=== PATIENT | female | born 1955 | race Caucasian/White ===

== ENCOUNTER 2017-08-31 11:43 | Emergency (ER) | payer BC ==
[2017-08-31 11:51] VITALS: BP 118/68
--- NOTE | 2017-08-31 11:59 | ED ---
Bite Injury/Animal - HPI Summary HPI Summary: 61-year-old female presents with tick bite on Sunday. She states that on Sunday she must have gotten the tick and on Sunday she scratched the area and the tick feel off. She denies any fevers or spreading redness. She denies any neck stiffness. She is not allergic to doxycycline. She has past medical condition of blood pressure. She denies any joint pain. - History of Current Complaint Chief Complaint: Octavio Stated Complaint: TICK BITE Time Seen by Provider: 08/31/17 11:53 Pain Intensity: 0 - Allergies/Home Medications Allergies/Adverse Reactions: Allergies Allergy/AdvReac Type Severity Reaction Status Date / Time No Known Allergies Allergy Verified 08/31/17 11:51 PMH/Surg Hx/FS Hx/Imm Hx Endocrine/Hematology History: Reports: Hx Thyroid Disease - hypo Respiratory History: Denies: Hx Asthma - Cancer History Cancer Type, Location and Year: breast ca Hx Chemotherapy: Yes - ONCE Hx Radiation Therapy: Yes - TWICE - Surgical History Surgery Procedure, Year, and Place: bilateral lobectomy x2. bilateral axillary dissection x2 Infectious Disease History: No Infectious Disease History: Denies: Hx Clostridium Difficile, Hx Hepatitis, Hx Human Immunodeficiency Virus (HIV), Hx of Known/Suspected MRSA, Hx Shingles, Hx Tuberculosis, Hx Known/ Suspected VRE, Hx Known/Suspected VRSA, History Other Infectious Disease, Traveled Outside the in Last 30 Days - Family History Known Family History: Positive: Hypertension - Social History Alcohol Use: Weekly Alcohol Amount: 2-3 glasses per week Substance Use Type: Reports: None Hx Tobacco Use: No Smoking Status (MU): Never Smoked Tobacco Have You Smoked in the Last Year: No Review of Systems Negative: Fever Negative: Chest Pain Negative: Shortness Of Breath Positive: Other - tick bite neck All Other Systems Reviewed And Are Negative: Yes Physical Exam Triage Information Reviewed: Yes Vital Signs On Initial Exam: Initial Vitals Temp Pulse Resp BP Pulse Ox 98.1 F 83 18 118/68 98 08/31/17 11:48 08/31/17 11:48 08/31/17 11:48 08/31/17 11:48 08/31/17 11:48 Vital Signs Reviewed: Yes Appearance: Positive: Well-Appearing Skin: Positive: Warm, Dry, Other - old tick bite on neck Head/Face: Positive: Normal Head/Face Inspection Eyes: Positive: Normal, Conjunctiva Clear Respiratory/Lung Sounds: Positive: Clear to Auscultation, Breath Sounds Present Cardiovascular: Positive: Normal, RRR Musculoskeletal: Positive: Normal Neurological: Positive: Normal Psychiatric: Positive: Normal Diagnostics - Vital Signs Vital Signs Temp Pulse Resp BP Pulse Ox 08/31/17 11:48 98.1 F 83 18 118/68 98 - Laboratory Lab Statement: Any lab studies that have been ordered have been reviewed, and results considered in the medical decision making process. Bite Injury Course/Dx - Course Course Of Treatment: 61-year-old female presents with tick bite on Sunday. She states that on Sunday she must have gotten the tick and on Sunday she scratched the area and the tick feel off. She denies any fevers or spreading redness. She denies any neck stiffness. She is not allergic to doxycycline. She has past medical condition of blood pressure. She denies any joint pain. on exam has area where tick was present. no signs of cellulitis. We'll treat with prophylactic dose of doxycycline as was his given within 72 hours of tick removal. Patient understands agrees with plan. - Diagnoses Differential Diagnosis/HQI/PQRI: Positive: Superficial Infection, Other - tick, lyme Provider Diagnosis: Tick bite Discharge - Sign-Out/Discharge Documenting (check all that apply): Discharge/Admit/Transfer - Discharge Plan Condition: Good Disposition: HOME Prescriptions: DOXYcycline CAP(*) [DOXYcycline 100MG CAP(*)] 200 mg PO DAILY #2 cap Patient Education Materials: Tick Bite (ED) Referrals: Rylie Carson NP [Primary Care Provider] - Additional Instructions: Take two antibiotic tablets at once, you may throw it up Return to ED if develop any rash or signs of infection - Billing Disposition and Condition Condition: GOOD Disposition: HOME
== END 2017-08-31 12:05 | disposition home or self-care (01) ==
LOC: UCEAST 11:43
DX: S10.96XA Insect bite of unspecified part of neck, initial encounter (principal); W57.XXXA Bitten or stung by nonvenomous insect and other nonvenomous arthropods, initial encounter; Y93.9 Activity, unspecified; Y92.9 Unspecified place or not applicable; E03.9 Hypothyroidism, unspecified; Z85.3 Personal history of malignant neoplasm of breast
CPT/HCPCS: 99212; G0463

== ENCOUNTER 2019-03-28 07:15 | Observation (INO) | payer MEDICARE ==
[~2019-03-28 07:15] MED LIST: Acetaminophen TAB* 325 MG PO ONE; Buffered Lidocaine 1% SYRIN* 1 ML/SYRINGE INTRADERM ONE; Famotidine IV* 10 MG/ML 2 ML (20 mg) IV ONE; Gabapentin CAP(*) 300 MG PO ONE; Lactated Ringers 1000 ML Bag* 1,000 ML IV SCH
[2019-03-28] MEDS ORDERED: Heparin VIAL(*) 5000 UNITS/ML VIAL (FIVE THOUSAND) ONE (09:29)
[2019-03-28] MEDS ORDERED: Famotidine IV* 10 MG/ML 2 ML (20 mg) ONE (09:30)
[2019-03-28] MEDS ORDERED: ceFAZolin 2 GM in NS PREMIX(*) 2 GM/100 ML BAG IVPB ONE (09:30)
[2019-03-28] MEDS ORDERED: Acetaminophen TAB* 325 MG ONE (09:30)
[2019-03-28] MEDS ORDERED: Gabapentin CAP(*) 300 MG ONE (09:30)
[2019-03-28] MEDS ORDERED: Midazolam* 1 MG/ML 2 ML VIAL (2 MG) ONE (10:33)
[2019-03-28] MEDS ORDERED: fentaNYL* 50 MCG/ML 2 ML VIAL (100 MCG VIAL) ONE ×4 (10:33→15:38)
[2019-03-28] MEDS ORDERED: Bupivacaine 0.25% SDV PF* 10 ML VIAL INJ ONE ×2 (10:58→13:01)
[2019-03-28] MEDS ORDERED: Dexamethasone IV* 4 MG/ML 1 ML (4 MG) ONE (11:26)
[2019-03-28] MEDS ORDERED: Propofol* 10 MG/ML 20 ML BTL ONE (11:26)
[2019-03-28] MEDS ORDERED: Lidocaine 2% PF * 5 ML VIAL ONE (11:26)
[2019-03-28] MEDS ORDERED: Ondansetron INJ* 2 MG/ML VIAL ONE (11:26)
[2019-03-28] MEDS ORDERED: Ketorolac INJ* 30 MG/ML 1 ML VIAL ONE (14:11)
[2019-03-28] MEDS ORDERED: DiMENhydriNATE IV* 50 MG/ML VIAL IV PUSH PRN (14:14)
[2019-03-28] MEDS ORDERED: Scopolamine 1.5 mg* PATCH TRANSDERM PRN (14:14)
[2019-03-28] MEDS ORDERED: Naloxone* 0.4 MG/ML 1 ML VIAL IV PRN (14:14)
[2019-03-28] MEDS ORDERED: Ondansetron INJ* 2 MG/ML VIAL IV PRN ×2 (14:14→14:34)
[2019-03-28] MEDS ORDERED: oxyCODONE TAB* 5 MG TAB PO PRN (14:14)
[2019-03-28] MEDS ORDERED: Acetaminophen IV 1GM/100ML * 100 ML ONE (14:15)
[2019-03-28] MEDS ORDERED: HYDROmorphone INJ* 0.5 MG/0.5 ML SYRINGE IV SLOW PU PRN (14:34)
[2019-03-28] MEDS ORDERED: Ibuprofen TAB* 600 MG PO PRN (14:34)
[2019-03-28] MEDS ORDERED: oxyCODONE/Acetamin 5/325 MG* TAB PO PRN (14:34)
[2019-03-28] MEDS: fentaNYL* 50 MCG/ML 2 ML VIAL (100 MCG VIAL) IV PRN ×2 (15:39→15:54)
[2019-03-28] MEDS: Lactated Ringers 1000 ML Bag* 1,000 ML IV SCH (17:22)
[2019-03-28] MEDS: Acetaminophen TAB* 325 MG PO PRN (19:35)
[2019-03-28] MEDS: Heparin VIAL(*) 5000 UNITS/ML VIAL (FIVE THOUSAND) SUBCUT SCH (21:35)
--- NOTE | 2019-03-28 21:37 | OP ---
CC: [facility]; Rylie Carson NP; [facility] OPERATIVE REPORT: DATE OF OPERATION: 03/28/19 DATE OF : 51 SURGEON: Era Patiño MD COIN MACHINE OPERATOR: iBjal Villegas NP and PAULA Galvan, student PRE-OP DIAGNOSIS: Left breast cancer. POST-OP DIAGNOSIS: Left breast cancer. OPERATIVE PROCEDURE: Bilateral mastectomy and left axillary dissection. INDICATIONS: Ms. King is a 63-year-old woman recently diagnosed with left breast cancer. Her history is significant for having had bilateral breast cancers in the distant past status post radiation on both sides and axillary dissection at least on the left. Plans were therefore made for surgical intervention. She opted for bilateral mastectomy and was aware that an attempt will be made at completion axillary dissection with the understanding that possibly not many lymph nodes would be recovered. DESCRIPTION OF PROCEDURE: She was brought to the operating room, placed on the OR table in the supine position and given general anesthesia. The chest wall and left axilla were prepped and draped in the usual sterile fashion. Attention was turned first to the right side. An incision was made in the superior aspect of the breast and subcutaneous tissue was divided with electrocautery to create flaps medially to the sternum, superiorly to the clavicle, and laterally to the latissimus dorsi muscle. An inferior incision was made creating an ellipse around the nipple areolar complex and scar from the previous surgery. Subcutaneous tissues was again divided with electrocautery medially to the sternum, inferiorly to the rectus muscle, and laterally to the latissimus dorsi muscle. The breast was then elevated off the chest wall using electrocautery. Once it was off, it was marked in the usual fashion and handed off as a specimen. Hemostasis was assured with electrocautery. Once this appeared adequate, closure was accomplished. This was done with 2-0 Vicryl to reapproximate subcutaneous layer and the skin was closed with 4-0 Vicryl in a subcuticular fashion. Prior to closing, a KARI drain was placed under the flaps of the mastectomy site emerging from a stab wound in the anterior axillary line. This was secured to the chest wall with 3-0 Prolene. Steri-Strips and a dry fluffy dressing were applied at the end of the case. Attention was then turned to the left side here. An incision was made in the superior breast encompassing a scar from the previous surgery. Subcutaneous tissue was then divided with electrocautery medially to the sternum, superiorly to the clavicle and laterally to the latissimus dorsi muscle. An inferior incision was made encompassing the nipple areolar complex and completing the ellipse of skin around the nipple areolar complex. Subcutaneous tissues was then divided with electrocautery medially to the sternum, inferiorly to the rectus muscle, and laterally to the latissimus dorsi muscle. The breast was then elevated off the chest wall using electrocautery. Hemostasis was achieved with electrocautery as the breast was excised. At the lateral superior extent in the axilla, a search was made for axillary lymph nodes. There appeared to be some relatively high axillary lymph nodes accessible. So these were dissected free from the axilla using primarily sharp and blunt dissection. The axillary fat pad was swept posteriorly from the pectoralis muscle, inferiorly from the axillary vein and anteriorly from the latissimus dorsi muscle. Clips were used to control small blood and lymphatic vessels that were encountered and there was occasional use of ligature. Once the axillary contents were removed, the breast together with the axillary contents was marked in the usual fashion and handed off as a specimen. The wound was inspected for hemostasis which was assured with electrocautery and then 2 KARI drains were placed, 1 emerging from the anterior axillary line, 1 emerging from the mid axillary line , and closure was accomplished with 2-0 Vicryl in the subcutaneous layer and the skin was closed with 4-0 Vicryl in a subcuticular fashion. Steri- Strips and a dry fluffy dressing were applied to the this site as well and the chest was wrapped with an Yinka wrap. All sponge and instrument counts were correct. The patient tolerated the procedure well and was transferred to recovery in a stable condition. [id number]/[facility] #: [id number] MIGUEL
[2019-03-29] MEDS: Acetaminophen TAB* 325 MG PO PRN (03:14)
[2019-03-29] MEDS: Lactated Ringers 1000 ML Bag* 1,000 ML IV SCH (05:58)
[2019-03-29] MEDS: Heparin VIAL(*) 5000 UNITS/ML VIAL (FIVE THOUSAND) SUBCUT SCH (05:58)
[2019-03-29 07:36] VITALS: BP 139/81
[2019-03-29] MEDS ORDERED: Levothyroxine TAB* 88 MCG TAB PO SCH (08:00)
--- NOTE | 2019-03-29 08:01 | PN ---
Progress Note - Progress Note Date of Service: 03/29/19 Note: Surgery Ms. King reports she is doing well. She denies pain. Vital Signs 03/28/19 03/28/19 03/28/19 09:40 15:03 15:04 Temperature 97.0 F Pulse Rate 65 92 95 Respiratory 16 Rate Blood Pressure 112/70 134/79 (mmHg) O2 Sat by Pulse 98 99 99 Oximetry 03/28/19 03/28/19 03/28/19 15:05 15:10 15:15 Temperature 99.9 F Pulse Rate 93 90 91 Respiratory 13 14 Rate Blood Pressure 128/79 130/79 129/79 (mmHg) O2 Sat by Pulse 99 99 99 Oximetry 03/28/19 03/28/19 03/28/19 15:20 15:25 15:30 Temperature Pulse Rate 89 93 103 Respiratory 16 17 21 Rate Blood Pressure 125/80 119/74 107/67 (mmHg) O2 Sat by Pulse 99 99 99 Oximetry 03/28/19 03/28/19 03/28/19 15:39 15:45 15:54 Temperature Pulse Rate 85 Respiratory 16 8 16 Rate Blood Pressure 107/67 (mmHg) O2 Sat by Pulse 96 Oximetry 03/28/19 03/28/19 03/28/19 16:00 16:15 16:30 Temperature Pulse Rate 78 78 87 Respiratory 18 13 13 Rate Blood Pressure 115/68 122/76 117/66 (mmHg) O2 Sat by Pulse 99 99 94 Oximetry 03/28/19 03/28/19 03/28/19 16:45 17:00 17:35 Temperature 97.6 F Pulse Rate 86 80 Respiratory 16 14 14 Rate Blood Pressure 115/70 127/68 (mmHg) O2 Sat by Pulse 99 98 Oximetry 03/28/19 03/28/19 03/28/19 17:39 18:05 19:05 Temperature 97.5 F 97.9 F 97.5 F Pulse Rate 80 82 85 Respiratory 14 15 18 Rate Blood Pressure 127/68 118/61 125/75 (mmHg) O2 Sat by Pulse 98 98 99 Oximetry 03/28/19 03/28/19 03/28/19 19:21 21:00 23:13 Temperature 97.9 F 97.9 F Pulse Rate 89 78 Respiratory 18 16 17 Rate Blood Pressure 126/69 112/56 (mmHg) O2 Sat by Pulse 100 98 Oximetry 03/29/19 03/29/19 03/29/19 03:01 03:05 07:27 Temperature 98.5 F Pulse Rate 83 Respiratory 16 16 Rate Blood Pressure 114/61 (mmHg) O2 Sat by Pulse 98 100 100 Oximetry 03/29/19 07:34 Temperature 98.6 F Pulse Rate 73 Respiratory 16 Rate Blood Pressure 139/81 (mmHg) O2 Sat by Pulse 98 Oximetry Right mastectomy site: clean, dry, no signs of infection. Flaps viable. Left mastectomy site: clean, dry, no signs of infection. Flaps viable. KARI, right: serous drainage JPs, left: serosanguinous drainage. Intake & Output 03/28/19 03/29/19 03/29/19 22:59 06:59 14:59 Intake Total 1875 1380 Output Total 431 700 Balance 1444 680 Intake: IV Fluids 1400 980 LR 1400 980 Oral 475 400 Output: KARI #1 42 30 KARI #2 40 30 KARI #3 49 40 Urine 300 600 Other: Estimated Void Small Date of Last Bowel 03/28/19 Movement # Voids 1 A/P: POD#1 s/p bilateral mastectomies, left axillary dissection. Doing well. Can go home and f/u as outpt. [facility]
[2019-03-29] MEDS ORDERED: Benzocaine/Menthol LOZ* 1 LOZENGE PO PRN (08:02)
[2019-03-31] MEDS ORDERED: Scopolamine PATCH Remove* 1 NOTE MISC PATCH OFF ONE (14:14)
== END 2019-03-29 10:05 | disposition home or self-care (01) ==
LOC: OR 07:15 → SSU 14:34
PROVIDERS: ADMIT Surgery; ATTEND Surgery
DX: C50.912 Malignant neoplasm of unspecified site of left female breast (principal); Z92.21 Personal history of antineoplastic chemotherapy
CPT/HCPCS: 96372; 96374; A9270-GY; G0378; J0690; J1100; J1644; J1885; J2250; J2405; J2704; J3010; J3490

== ENCOUNTER 2019-04-05 12:14 | Emergency (ER) | payer MEDICARE ==
[2019-04-05 12:56] VITALS: BP 116/56
--- NOTE | 2019-04-05 13:24 | UC ---
Skin Complaint HPI - HPI Summary HPI Summary: 63-year-old female comes in with a chief complaint of temperature of 100.8 and redness of a right-sided mastectomy site. Patient had a bilateral mastectomy on February 25, 2019. Yesterday started to notice some erythema at the surgical wound site. Today the erythema has extended. Patient states she feels slightly ill. She still has a draining on the right side is no drainage on the left side. Continuing to have serosanguineous drainage. She spoke with the surgeon on-call Dr. Sam who recommended evaluation. - History of Current Complaint Chief Complaint: UCWounds Time Seen by Provider: 04/05/19 13:13 Stated Complaint: infection, fever Pain Intensity: 3 - Allergy/Home Medications Allergies/Adverse Reactions: Allergies Allergy/AdvReac Type Severity Reaction Status Date / Time No Known Allergies Allergy Verified 04/05/19 12:56 PMH/Surg Hx/FS Hx/Imm Hx Previously Healthy: Yes Endocrine History: Hypothyroidism - Surgical History Surgical History: Yes Surgery Procedure, Year, and Place: bilateral lobectomy x2. bilateral axillary dissection x2. bilat mastectomy 02/25/19 - Family History Known Family History: Positive: Hypertension - Social History Alcohol Use: Weekly Alcohol Amount: 3 glasses of wine Substance Use Type: None Smoking Status (MU): Never Smoked Tobacco Have You Smoked in the Last Year: No - Immunization History Most Recent Influenza Vaccination: 2016 Most Recent Pneumonia Vaccination: NEVER HAVE RECIEVED Review of Systems All Other Systems Reviewed And Are Negative: Yes Constitutional: Positive: Fever, Other - SEE HPI Skin: Positive: Other - SEE HPI Eyes: Positive: Negative ENT: Positive: Negative Respiratory: Positive: Negative Cardiovascular: Positive: Negative Gastrointestinal: Positive: Negative Motor: Positive: Negative Neurovascular: Positive: Negative Musculoskeletal: Positive: Negative Neurological: Positive: Negative Psychological: Positive: Negative Is Patient Immunocompromised?: No Physical Exam Triage Information Reviewed: Yes Appearance: Well-Appearing, No Pain Distress, Well-Nourished Vital Signs: Initial Vital Signs Temp 99.3 F 04/05/19 12:47 Pulse 107 04/05/19 12:47 Resp 16 04/05/19 12:47 BP 116/56 04/05/19 12:47 Pulse Ox 100 04/05/19 12:47 Vital Signs Reviewed: Yes Eye Exam: Normal Eyes: Positive: Conjunctiva Clear Neck: Positive: Supple Respiratory: Positive: No respiratory distress Musculoskeletal: Positive: Strength Intact, ROM Intact Neurological: Positive: Alert Psychological: Positive: Age Appropriate Behavior Skin: Positive: Other - The right-sided mastectomy site has erythema along the incision approximately 3 cm x 5 cm. No drainage on exam. Drain is in place with serosanguineous drainage. Left-sided mastectomy does have some erythema just along the incision site without any drainage. Course/Dx - Course Course Of Treatment: I discussed the case with Dr. Sam the surgeon consulting nurse. She recommended treatment with Keflex and follow-up with surgery on Sunday, April 07, 2019. She also recommended that if the patient got worse she would need further evaluation emergency Department. - Diagnoses Provider Diagnosis: Cellulitis, wound, post-operative Discharge ED - Sign-Out/Discharge Documenting (check all that apply): Patient Departure All imaging exams completed and their final reports reviewed: No Studies - Discharge Plan Condition: Stable Disposition: HOME Prescriptions: Cephalexin CAP* [Keflex CAP*] 500 mg PO QID #40 cap Patient Education Materials: Cellulitis (ED) Referrals: Rylie Carson NP [Primary Care Provider] - Margarita Sam MD [Medical Doctor] - Era Patiño MD [Medical Doctor] - Additional Instructions: FOLLOW UP WITH SURGERY ON 04/07/19 SCHEDULED. GET REEVALUATED SOONER IF NOT IMPROVED OR GO TO THE EMERGENCY DEPARTMENT IF WORSE; SPREAD OF INFECTION, YOU FEEL ILL OR ANY QUESTIONS OR CONCERNS. - Billing Disposition and Condition Condition: STABLE Disposition: Home
== END 2019-04-05 13:42 | disposition home or self-care (01) ==
LOC: UCEAST 12:14
DX: L76.82 Other postprocedural complications of skin and subcutaneous tissue (principal); N61.0 Mastitis without abscess; Y83.8 Other surgical procedures as the cause of abnormal reaction of the patient, or of later complication, without mention of misadventure at the time of the procedure
CPT/HCPCS: 99212; G0463

== ENCOUNTER 2019-05-17 12:08 | Emergency (ER) | payer MEDICARE ==
--- OUTSIDE RECORDS SUMMARY | 2019-05-17 12:16 | XMS REPORT | Continuity of Care Document ---
:1955 External Reference #:[id number] Author Name Era Patiño MD (transmitted by agent of provider Davis Camacho) Address [address] [facility] [address] [place] [address] Care Team Providers Name Role Phone Rylie Carson NP - Family Care Team Information Spring Fitter [phone] Seda Mckeon MD - Internal Care Team Information Spring Fitter [phone] Medicine Problems Active Problems Provider Date Personal history of primary malignant neoplasm Rylie Carson, N.PAnna Onset: of breast Social History Type Date Description Comments Sex Unknown ETOH Use Currently consumes 3 glasses of wine alcohol weekly Tobacco Use Start: Unknown Patient has never smoked Smoking Status Reviewed: 05/15/19 Patient has never smoked Exercise Exercises regularly Cycles or walks daily Type/Frequency Allergies, Adverse Reactions, Alerts Description No Known Drug Allergies Medications Active Medications SIG Qnty Indications Ordering Date Provider Bacitracin (External) apply to affected 56.8gm S20.469A Meagan Yusuf, areas twice a day M.D. 500Unit/GM Ointment x 10 days Levothyroxine Sodium 1 by mouth every 90tabs Rylie Carson, 11/01/2018 day N.P. 88mcg Tablets Anastrozole Take 1 Tablet By Unknown 1mg Tablets Mouth Every Day History Medications Cephalexin Four Times Daily 40caps Unknown 04/05/2019 - Unknown 500mg Capsules Amoxicillin/Clavulana one tablet by 20tabs Rylie Carson, 03/07/2019 - te Potassium mouth twice daily N.P. 03/17/2019 875-125mg for 10 days Tablets Immunizations CPT Code Status Date Vaccine Reaction Lot # [id number] Given 01/10/2017 Influenza Virus Vaccine, No immediate [id number] Quadrivalent, Split, reaction...jh Preservative Free [id number] Given 01/05/2016 Tdap - [id number] Tetanus/Diptheria/Acellular Pertussis Vital Signs Date Vital Result Comment 05/15/2019 4:19pm Heart Rate 68 /min Respiratory Rate 16 /min Body Temperature 98.5 F 04/23/2019 11:28am Heart Rate 72 /min Respiratory Rate 16 /min Body Temperature 98.7 F Results Test Acquired Date Facility Test Result H/L Range Note Surgical 02/18/2019 [facility] Surgical SEE RESULT 1, [address] [place] [address] [phone] PDFReport [id number] <SEE NOTE> Laboratory 01/28/2019 [facility] TSH (Thyroid 0.85 Normal 0.34 -5.[address] Stim Horm) mcIU/[place] [address] [phone] Lipid Profile 01/28/2019 [facility] Triglycerides 66 mg/dL 4 (Trig/Chol/HD [address]) [place], [place] [id number] [phone] Cholesterol 219 mg/dL 5 HDL Cholesterol 87.5 mg/dL 6 LDL Cholesterol 118 mg/dL 7 Comp Metabolic 01/28/2019 [facility] Sodium 140 mmol/L Normal 135-[address] [place] [address] [phone] Potassium 4.5 mmol/L Normal 3.5-5.0 Chloride 106 mmol/L Normal 101-111 Co2 Carbon Dioxide 28 mmol/L Normal 22-32 Anion Gap 6 mmol/L Normal 2-11 Glucose 103 mg/dL High 70-100 Blood Urea Nitrogen 10 mg/dL Normal 6-24 Creatinine 0.79 mg/dL Normal 0.51-0.95 BUN/Creatinine Ratio 12.7 Normal 8-20 Calcium 9.1 mg/dL Normal 8.6-10.3 Total Protein 6.3 g/dL Low 6.4-8.9 Albumin 4.3 g/dL Normal 3.2-5.2 Globulin 2.0 g/dL Normal 2-4 Albumin/Globulin Ratio 2.2 Normal 1-3 Total Bilirubin 0.50 mg/dL Normal 0.2-1.0 Alkaline Phosphatase 43 U/L Normal 34-104 Alt 16 U/L Normal 7-52 Ast 22 U/L Normal 13-39 Egfr Non- 73.0 >60 Egfr 88.4 >60 8 1 [id number] 2 SEE RESULT BELOW Name: CELESTINE KING : [address]: Rylie Carson NP Acct: [id number] Unit: [id number] AGE: 63 Location: [facility] Re02/18/19 SEX: F Status: REG REF SPEC: [id number] PHILOMENA: 02/18/[address] [facility] [address]: Kareem Fairchild MD REQ: [id number] RECD: 02/18/19 STATUS: NEGRO SABA DR: Rylie Carson IMAGING AIDE _ ORDERED: LEVEL 4, IMMUNO-FIRST, IMMUNO-ADDL/6, IMMUNO-QUANT/3 COMMENTS: [id number] FINAL DIAGNOSIS Breast, left, 12:00, 4 cm from nipple, core biopsy: -- Invasive ductal adenocarcinoma of breast, papillary type, with: Size: 3 mm. Tumor extent and distribution: Involves all sampled cores. Estimated Parth grade: Estimated tubule formation: 3. Estimated nuclear grade: 2. Estimated mitotic count: 1. Combined [place] histologic grade: 2/3. (6/9 points). Lymphovascular invasion: Not identified. Ductal Carcinoma in situ (DCIS): Not identified. ER, IA, and Her2/Christy by immunohistochemistry with appropriate controls: ER: Strongly positive, nearly 100%. IA: Negative, less than 1%. Her2/Christy: Negative (0+). Microcalcifications: Not identified. Other findings: None. Predicted pTNM histopathologic stage: at least pT1a. COMMENT: Immunohistochemical stains, with appropriately reacting controls, were performed and show lesional cells to be positive for pankeratin and CK7, and negative for vimentin, CD10, p63, CD45, and S100, supporting the diagnosis. Dr. Nettles reviewed this case in intradepartmental CONTINUED ON NEXT PAGE DEPARTMENT OF PATHOLOGY, [facility] [employer] [place] [address] Simon Nettles M.D. Director [facility] # [id number] consultation and agrees with the diagnosis. PRE-OPERATIVE DIAGNOSIS Left breast mass at 12:00, 4 cm from nipple, 0.6 x 0.4 x 0.6 cm cystic structure GROSS DESCRIPTION The specimen is received in formalin labeled, Left Breast Core Biopsies, and consists of a 0.7 x 0.6 x 0.2 cm aggregate of yellow irregular to cylindrical fibrofatty soft tissue fragments and red-brown blood clot. Entirely submitted, one cassette. Signed by and Reported on: Ellen Rodriguez MD 02/20/19 1629 END OF REPORT DEPARTMENT OF PATHOLOGY, [facility] [employer] [place], [place] [address] Simon Nettles M.D. Director [facility] # [id number] 3 FASTING 10 HOUR 4 Desirable: <150 Borderline High: 150-199 High: 200-499 Very High: >500 5 Desirable: <200 Borderline High: 200-239 High: >239 6 Low: <40 Desirable: 40-60 High: >60 7 Desirable: <100 Near Optimal: 100-129 Borderline High: 130-159 High: 160-189 Very High: >189 8 Because ethnic data is not always readily available, this report includes an eGFR for both -Americans and non- Americans. The National Kidney Disease Education Program (NKDEP) does not endorse the use of the MDRD equation for patients that are not between the ages of 18 and 70, are , have extremes of body size, muscle mass, or nutritional status, or are non- or non-. According to the National Kidney Foundation, irrespective of diagnosis, the stage of the disease is based on the level of kidney function: Stage Description GFR(mL/min/1.73 m(2)) 1 Kidney damage with normal or decreased GFR 90 2 Kidney damage with mild decrease in GFR 60-89 3 Moderate decrease in GFR 30-59 4 Severe decrease in GFR 15-29 5 Kidney failure <15 (or dialysis) Procedures Date Code Description Status 03/28/2019 49753 Mastectomy Mod Radical Not Including Pectoralis Major Completed Muscle 03/28/2019 79544 Mastectomy Mod Radical Not Including Pectoralis Major Completed Muscle 02/03/2019 92093 EKG Tracing & Interpretation Completed 04/14/2016 86640482 Colonoscopy Completed 01/13/2016 96465077 Mammogram Completed Medical Devices Description No Information Available Encounters Type Date Location Provider Dx Diagnosis Office Visit 03/26/2019 [facility] Meagan Yusuf, S20.469A Insect bite 12:10p Medicine - [facility] M.DAnna (nonvenomous) of unsp back wall of thorax, init Office Visit 02/27/2019 [facility] C50.912 Malignant neoplasm 3:[facility]p [facility] Pati[facility] MD of unspecified site of left female breast Assessments Date Code Description Provider 04/23/2019 C50.911 Malignant neoplasm of unspecified site Era Patiño MD of right female breast 04/14/2019 C50.911 Malignant neoplasm of unspecified site Tyrell López MD , FACS of right female breast 04/09/2019 Z85.3 Personal history of malignant neoplasm Era Patiño MD of breast 04/09/2019 L76.34 Postprocedural seroma of skin and Era Patiño MD subcutaneous tissue following other procedure 04/02/2019 C50.912 Malignant neoplasm of unspecified site Era Patiño MD of left female breast 03/28/2019 C50.912 Malignant neoplasm of unspecified site Bijal Villegas NP of left female breast 03/28/2019 C50.912 Malignant neoplasm of unspecified site Era Patiño MD of left female breast 03/26/2019 S20.469A Insect bite (nonvenomous) of Meagan Yusuf M.D. unspecified back wall of thorax, initial encounter 03/26/2019 C50.912 Malignant neoplasm of unspecified site Era Patiño MD of left female breast 03/06/2019 C50.912 Malignant neoplasm of unspecified site Era Patiño MD of left female breast 03/06/2019 Z85.3 Personal history of malignant neoplasm Era Patiño MD of breast 02/27/2019 C50.912 Malignant neoplasm of unspecified site Era Patiño MD of left female breast 02/03/2019 Z00.00 Encounter for general adult medical Cristina Freeman MD examination without abnormal findings 02/03/2019 Z00.00 Encounter for general adult medical Rylie Carson, N.PAnna examination without abnormal findings 02/03/2019 Z12.31 Encounter for screening mammogram for Rylie Trammelln, N.P. malignant neoplasm of breast 02/03/2019 E78.00 Pure hypercholesterolemia, unspecified Rylie Varn, N.P. 02/03/2019 E03.9 Hypothyroidism, unspecified Rylie Varn, N.P. 02/03/2019 N95.8 Other specified menopausal and Rylie Varn, N.P. perimenopausal disorders Plan of Treatment Future Appointment(s):02/09/2020 9:20 am - Rylie Carson, N.P. at [facility] - Era Patiño MDC50.911 Malignant neoplasm of unspecified site of right female breastFollow up:As needed Functional Status Description No Information Available Mental Status Description No Information Available Referrals Description No Information Available
--- OUTSIDE RECORDS SUMMARY | 2019-05-17 12:16 | XMS REPORT | Continuity of Care Document ---
:1955 External Reference #:[id number] Author Name Era Patiño MD (transmitted by agent of provider Davis Camacho) Address [address] [place] [address] Care Team Providers Name Role Phone Rylie Carson NP - Family Care Team Information Process Improvement Manager [phone] Seda Mckeon MD - Internal Care Team Information Process Improvement Manager Medicine Problems Active Problems Provider Date Personal history of primary malignant neoplasm Rylie Carson, N.P. Onset: of breast Social History Type Date Description Comments Sex Unknown ETOH Use Currently consumes 3 glasses of wine alcohol weekly Tobacco Use Start: Unknown Patient has never smoked Smoking Status Reviewed: 04/09/19 Patient has never smoked Exercise Exercises regularly Cycles or walks daily Type/Frequency Allergies, Adverse Reactions, Alerts Description No Known Drug Allergies Medications Active Medications SIG Qnty Indications Ordering Date Provider Cephalexin Four Times Daily 40caps Unknown 04/05/2019 500mg Capsules Bacitracin (External) apply to affected 56.8gm S20.469A Meagan Yusuf, areas twice a day M.D. 500Unit/GM Ointment x 10 days Levothyroxine Sodium 1 by mouth every 90tabs Rylie Carson, 11/01/2018 day N.P. 88mcg Tablets History Medications Amoxicillin/Clavulanate one tablet by 20tabs Rylie Carson, 03/07/2019 - Potassium mouth twice N.P. 03/17/2019 875-125mg Tablets daily for 10 days Immunizations CPT Code Status Date Vaccine Reaction Lot # [id number] Given 01/10/2017 Influenza Virus Vaccine, No immediate [id number] Quadrivalent, Split, reaction... Preservative Free 27698 Given 01/05/2016 Tdap - [id number] Tetanus/Diptheria/Acellular Pertussis Vital Signs Date Vital Result Comment 04/09/2019 10:10am Heart Rate 60 /min Respiratory Rate 16 /min Body Temperature 98.5 F 04/02/2019 9:24am Heart Rate 72 /min BP Systolic 115 mmHg BP Diastolic 66 mmHg Respiratory Rate 16 /min Body Temperature 97.8 F Results Test Acquired Date Facility Test Result H/L Range Note Surgical 02/18/2019 [facility] Surgical SEE RESULT 1, [address] [place] [address] [phone] PDFReport [id number] <SEE NOTE> Laboratory 01/28/2019 [facility] TSH (Thyroid 0.85 Normal 0.34 -5.[address] Stim Horm) mcIU/[place] [address] [phone] Lipid Profile 01/28/2019 [facility] Triglycerides 66 mg/dL 4 (Trig/Chol/HD [place] L) [place] [address] [phone] Cholesterol 219 mg/dL 5 HDL Cholesterol 87.5 mg/dL 6 LDL Cholesterol 118 mg/dL 7 Comp Metabolic 01/28/2019 [facility] Sodium 140 mmol/L Normal 135-[address] [place] [address] [phone] Potassium 4.5 mmol/L Normal 3.5-5.0 Chloride 106 [...] 73.0 >60 Egfr 88.4 >60 8 1 [id number] 2 SEE RESULT BELOW Name: CELESTINE KING : [address]: Rylie Carson NP Acct: [id number] Unit: [id number] AGE: 63 Location: [facility] Re02/18/19 SEX: F Status: REG REF SPEC: [id number] PHILOMENA: 02/18/19-1035 [facility] DR: Kareem Fairchild MD REQ: [id number] RECD: 02/18/19 STATUS: NEGRO SABA DR: Rylie Carson LABORER SHIPYARD _ ORDERED: LEVEL 4, IMMUNO-FIRST, IMMUNO-ADDL/6, IMMUNO-QUANT/3 COMMENTS: [id number] FINAL DIAGNOSIS Breast, left, 12:00, 4 cm from nipple, core biopsy: -- Invasive ductal adenocarcinoma of breast, papillary type, with: Size: 3 mm. Tumor extent and distribution: Involves all sampled cores. Estimated Parth grade: Estimated tubule formation: 3. Estimated nuclear grade: 2. Estimated mitotic count: 1. Combined [place] histologic grade: 2/3. (6/9 points). Lymphovascular invasion: Not identified. Ductal Carcinoma in situ (DCIS): Not identified. ER, CT, and Her2/Christy by immunohistochemistry with appropriate controls: ER: Strongly positive, nearly 100%. CT: Negative, less than 1%. Her2/Christy: Negative (0+). [...] CONTINUED ON NEXT PAGE DEPARTMENT OF PATHOLOGY, [facility] [employer] [place] [address] Simon Nettles M.D. Director [facility] # [id number] consultation and agrees with the diagnosis. PRE-OPERATIVE [...] 1629 END OF REPORT DEPARTMENT OF PATHOLOGY, [facility] [employer] [place], [place] [address] Simon Nettles M.D. Director [facility] # [id number] 3 FASTING 10 HOUR 4 Desirable: <150 [...] (or dialysis) Procedures Date Code Description Status 02/03/2019 20510 EKG Tracing & Interpretation Completed 04/14/2016 39530930 Colonoscopy Completed 01/13/2016 30873451 Mammogram Completed Medical Devices Description No Information Available Encounters Type Date Location Provider Dx Diagnosis Office Visit 03/26/2019 [facility] Meagan Yusuf, S20.469A Insect bite 12:10p Medicine - [facility] Pretty (nonvenomous) of unsp back wall of thorax, init Office Visit 02/27/2019 [facility] C50.912 Malignant neoplasm 3:15p [facility] Patiño MD of unspecified site of left female breast Assessments Date Code Description Provider 04/02/2019 C50.912 Malignant neoplasm of unspecified site of Era Patiño MD left female breast 03/26/2019 S20.469A Insect bite (nonvenomous) of unspecified Meagan Yusuf M.D. back wall of thorax, initial encounter 03/26/2019 C50.912 Malignant neoplasm of unspecified site of Era Patiño MD left female breast 03/06/2019 C50.912 Malignant neoplasm of unspecified site of Era Patiño MD left female breast 03/06/2019 Z85.3 Personal history of malignant neoplasm of Era Patiño MD breast 02/27/2019 C50.912 Malignant neoplasm of unspecified site of Era Flaco Patiño MD left female breast 02/03/2019 Z00.00 Encounter for general adult medical Cristina Freeman MD examination without abnormal findings 02/03/2019 Z00.00 Encounter for general adult medical Rylie Carson N.P. examination without abnormal findings 02/03/2019 Z12.31 Encounter for screening mammogram for Rylie Carson, N.P. malignant neoplasm of breast 02/03/2019 E78.00 Pure hypercholesterolemia, unspecified Rylie Varn, N.P. 02/03/2019 E03.9 Hypothyroidism, unspecified Rylie Varn, N.P. 02/03/2019 N95.8 Other specified menopausal and Rylie Carson, N.P. perimenopausal disorders Plan of Treatment Future Appointment(s):04/14/2019 9:00 am - Tyrell López MD, FACS at [facility]02/09/2020 9:20 am - Rylie Carson N.P. at [facility] Internal Medicine - [facility] Functional Status Description No Information Available Mental Status Description No Information Available Referrals Description No Information Available
--- OUTSIDE RECORDS SUMMARY | 2019-05-17 12:16 | XMS REPORT | Continuity of Care Document ---
:1955 External Reference #:[id number] Author Name Tyrell López MD, FACS (transmitted by agent of provider Davis Camacho) Address [address] [place] [address] Care Team Providers Name Role Phone Rylie Carson NP - Family Care Team Information Time Broker [phone] Seda Mckeno MD - Internal Care Team Information Time Broker [phone] Medicine Problems Active Problems Provider Date Personal history of primary malignant neoplasm Rylie Carson, N.P. Onset: of breast Social History Type Date Description Comments Sex Unknown ETOH Use Currently consumes 3 glasses of wine alcohol weekly Tobacco Use Start: Unknown Patient has never smoked Smoking Status Reviewed: 04/14/19 Patient has never smoked Exercise Exercises regularly [...] Code Status Date Vaccine Reaction Lot # 13694 Given 01/10/2017 Influenza Virus Vaccine, No immediate 572KT Quadrivalent, Split, reaction...jh Preservative Free 92738 Given 01/05/2016 Tdap - ec9a9 Tetanus/Diptheria/Acellular Pertussis Vital Signs Date Vital Result Comment 04/14/2019 8:55am Heart Rate 88 /min Respiratory Rate 16 /min Body Temperature 97.4 F 04/09/2019 10:10am Heart Rate 60 /min Respiratory Rate 16 /min Body Temperature 98.5 F Results Test Acquired Date Facility Test Result H/L Range Note Surgical 02/18/2019 [facility] Surgical SEE RESULT 1, [address] [place] [address] [phone] PDFReport [id number] <SEE NOTE> Laboratory 01/28/2019 [facility] TSH (Thyroid 0.85 Normal 0.34 -5.[address] Stim Horm) mcIU/[place] [address] [phone] Lipid Profile 01/28/2019 [facility] Triglycerides 66 mg/dL 4 (Trig/Chol/HD DRIVE L) [place] [address] [phone] Cholesterol 219 mg/dL 5 HDL Cholesterol 87.5 mg/dL 6 LDL Cholesterol 118 mg/dL 7 Comp Metabolic 01/28/2019 [facility] Sodium 140 mmol/L Normal 135-[address] [place] [address] [phone] Potassium 4.5 mmol/L Normal 3.5-5.0 Chloride 106 [...] 73.0 >60 Egfr 88.4 >60 8 1 [id number] 2 SEE RESULT BELOW Name: CELESTINE KING : [address]: Rylie Carson NP Acct: [id number] Unit: [id number] AGE: 63 Location: [facility] Re02/18/19 SEX: F Status: REG REF SPEC: [id number] PHILOMENA: 02/18/[address] [facility] [address]: Kareem Fairchild MD REQ: [id number] RECD: 02/18/19 STATUS: NEGRO SABA DR: Rylie Carson CHEMIC MANGLER _ ORDERED: LEVEL 4, IMMUNO-FIRST, IMMUNO-ADDL/6, IMMUNO-QUANT/3 COMMENTS: [id number] FINAL DIAGNOSIS Breast, left, 12:00, 4 cm from nipple, core biopsy: -- Invasive ductal adenocarcinoma of breast, papillary type, with: Size: 3 mm. Tumor extent and distribution: Involves all sampled cores. Estimated Parth grade: Estimated tubule formation: 3. Estimated nuclear grade: 2. Estimated mitotic count: 1. Combined [place] histologic grade: 2/3. (6/9 points). Lymphovascular invasion: Not identified. Ductal Carcinoma in situ (DCIS): Not identified. ER, NC, and Her2/Christy by immunohistochemistry with appropriate controls: ER: Strongly positive, nearly 100%. NC: Negative, less than 1%. Her2/Christy: Negative (0+). [...] CONTINUED ON NEXT PAGE DEPARTMENT OF PATHOLOGY, [facility] [employer] [place] [address] Simon Nettles M.D. Director [facility] # [id number] consultation and agrees with the diagnosis. PRE-OPERATIVE [...] 1629 END OF REPORT DEPARTMENT OF PATHOLOGY, [facility] [employer] [place], [place] [address] Simon Nettles M.D. Director [facility] # [id number] 3 FASTING 10 HOUR 4 Desirable: <150 [...] dialysis) Procedures Date Code Description Status 02/03/2019 82763 EKG Tracing & Interpretation Completed 04/14/2016 48793941 Colonoscopy Completed 01/13/2016 26493755 Mammogram Completed Medical Devices Description No Information [...] female breast Assessments Date Code Description Provider 04/09/2019 Z85.3 Personal history of malignant neoplasm of Era Patiño MD breast 04/09/2019 L76.34 Postprocedural seroma of skin [...] of Era Patiño MD left female breast 02/03/2019 Z00.00 Encounter for general adult medical Cristina Freeman MD examination without abnormal findings 02/03/2019 Z00.00 Encounter for general adult medical Rylie Carson, N.P. examination without abnormal findings 02/03/2019 Z12.31 Encounter for screening mammogram for Rylie Carson, N.P. malignant neoplasm of breast 02/03/2019 E78.00 Pure hypercholesterolemia, unspecified Rylie Varn, N.P. 02/03/2019 E03.9 Hypothyroidism, unspecified Rylie Varn, N.P. 02/03/2019 N95.8 Other specified menopausal and Rylie Varn, N.P. perimenopausal disorders Plan of Treatment Future Appointment(s):02/09/2020 9:20 am - Rylie Carson, N.P. at [facility] Internal Medicine - [facility]04/09/2019 - Era Patiño MDZ85.3 Personal history of malignant neoplasm of zypaqhZ30.34 Postprocedural seroma of skin and subcutaneous tissue following other procedureFollow up:Sunday with available provider Functional Status Description No Information Available Mental Status Description No Information Available Referrals Description No Information Available
[2019-05-17 12:25] VITALS: BP 139/78
--- NOTE | 2019-05-17 12:50 | UC ---
Back Pain HPI - HPI Summary HPI Summary: Patient has had 3 episodes of working back pain that is stabbing , takes her breath away, makes her feels nauseated---she does not relate and eipsode to food , or exercise - History of Current Complaint Chief Complaint: UCBackPain Stated Complaint: BACK PAIN Time Seen by Provider: 05/17/19 12:22 Hx Obtained From: Patient ?: No Onset/Duration: Lasting Days - 10 Timing: Intermittent Severity Initially: Severe - when it flares up Severity Currently: Mild - at rest Pain Intensity: 1 Pain Scale Used: 0-10 Numeric Back Pain: Is Discrete @ - right side of thorasic back Aggravating Factor(s): Nothing Alleviating Factor(s): Nothing Associated Signs And Symptoms: Positive: Numbness - in neck and jaw with second episode, Tingling - Allergies/Home Medications Allergies/Adverse Reactions: Allergies Allergy/AdvReac Type Severity Reaction Status Date / Time No Known Allergies Allergy Verified 05/17/19 12:16 Home Medications: Home Medications Anastrozole [Arimidex] 1 mg PO DAILY 05/17/19 [History Confirmed 05/17/19] PMH/Surg Hx/FS Hx/Imm Hx Previously Healthy: No Endocrine History: Hypothyroidism Cancer History: Breast Cancer - Surgical History Surgical History: Yes Surgery Procedure, Year, and Place: bilateral axillary dissection x2. bilat mastectomy 02/25/19 - Family History Known Family History: Positive: Hypertension - Social History Occupation: Retired Lives: With Family Alcohol Use: Daily Alcohol Amount: 1/2 glass of wine Substance Use Type: None Smoking Status (MU): Never Smoked Tobacco Have You Smoked in the Last Year: No - Immunization History Most Recent Influenza Vaccination: 2017 Most Recent Pneumonia Vaccination: NEVER HAVE RECIEVED Review of Systems All Other Systems Reviewed And Are Negative: Yes Constitutional: Positive: Negative Skin: Positive: Negative Eyes: Positive: Negative ENT: Positive: Negative Respiratory: Positive: Negative Cardiovascular: Positive: Other - right side thorasic spine Gastrointestinal: Positive: Nausea Genitourinary: Positive: Negative Motor: Positive: Negative Neurovascular: Positive: Negative Musculoskeletal: Positive: Negative Neurological: Positive: Negative Psychological: Positive: Negative Is Patient Immunocompromised?: No Physical Exam Triage Information Reviewed: Yes Appearance: Well-Appearing, No Pain Distress, Well-Nourished Vital Signs: Initial Vital Signs Temp 98.6 F 05/17/19 12:17 Pulse 64 05/17/19 12:17 Resp 18 05/17/19 12:17 BP 139/78 05/17/19 12:17 Pulse Ox 100 05/17/19 12:17 Vital Signs Reviewed: Yes Eye Exam: Normal Eyes: Positive: Conjunctiva Clear ENT Exam: Normal ENT: Positive: Normal ENT inspection, Hearing grossly normal. Negative: Nasal congestion, Trismus, Muffled voice, Hoarse voice Dental Exam: Normal Neck exam: Normal Neck: Positive: Supple, Nontender, No Lymphadenopathy Respiratory Exam: Normal Respiratory: Positive: Chest non-tender, Lungs clear, Normal breath sounds, No respiratory distress, No accessory muscle use Cardiovascular Exam: Normal Cardiovascular: Positive: No Murmur, Pulses Normal, Brisk Capillary Refill, Other: - trigeminy Abdominal Exam: Normal Abdomen Description: Positive: Nontender, No Organomegaly, Soft Bowel Sounds: Positive: Present Musculoskeletal Exam: Normal Musculoskeletal: Positive: Strength Intact, ROM Intact, No Edema Neurological Exam: Normal Neurological: Positive: Alert, Muscle Tone Normal Psychological Exam: Normal Skin Exam: Normal Diagnostics - EKG Cardiac Rate: NL Cardiac Rhythm: Sinus: Normal Ectopy: PVCs - trigeminey ST Segment: Normal EKG Comparison: Other - trigeminey not previously documented Back Pain Course/Dx - Course Course Of Treatment: patient will drive with friend directly to the emergency department for further assessment - Differential Dx/Diagnosis Provider Diagnosis: Chest pain in adult Discharge ED - Sign-Out/Discharge Documenting (check all that apply): Patient Departure All imaging exams completed and their final reports reviewed: No Studies - Discharge Plan Condition: Fair Disposition: HOME-RECOMMEND TO ED Referrals: Rylie Carson NP [Primary Care Provider] - Additional Instructions: please go directly to the hospital for further assessment and care - Billing Disposition and Condition Condition: FAIR Disposition: Home-Recommend to ED
== END 2019-05-17 13:05 | disposition home health service (06) ==
LOC: UCEAST 12:08
DX: R07.9 Chest pain, unspecified (principal); Z85.3 Personal history of malignant neoplasm of breast; R11.0 Nausea
CPT/HCPCS: 93005; 99212; G0463

== ENCOUNTER 2019-05-17 13:34 | Emergency (ER) | payer MEDICARE ==
[2019-05-17] MEDS ORDERED: NS 0.9% 1000 ML** 1,000 ML IV ONE ×2 (14:22→15:28)
--- NOTE | 2019-05-17 14:29 | ED ---
Back Pain - HPI Summary HPI Summary: Pt is a 63 y/o F presenting to the ED with a chief complaint of back pain initially onset about 1 week ago. She states she has experienced 3 episodes of intense back pain, including one episode 1 week ago, and another last night. When it happened 1 week ago she noted a numb feeling in her jaw and neck. Last night, she noted nausea along with the numbness and pain. She denies vomiting, fever, cough, chest pain, palpitations, abd pain, LE pain or edema, or hx of heart condition. Notes tick bite in early March as well as double mastectomy in March. - History of Current Complaint Chief Complaint: EDGeneral Stated Complaint: BACK PAIN AND ABNORMAL EKG PER PT Time Seen by Provider: 05/17/19 14:07 Hx Obtained From: Patient Onset/Duration: Sudden Onset, Lasting Hours, Resolved Onset/Duration: Started Days Ago, Resolved Timing: Intermittent, Lasting Hours Severity Initially: Mild Severity Currently: Mild Pain Intensity: 3 Pain Scale Used: 0-10 Numeric Aggravating Symptom(s): Nothing Alleviating Symptom(s): Nothing Associated Signs And Symptoms: Positive: Numbness. Negative: Fever - Allergies/Home Medications Allergies/Adverse Reactions: Allergies Allergy/AdvReac Type Severity Reaction Status Date / Time No Known Allergies Allergy Verified 05/17/19 12:16 PMH/Surg Hx/FS Hx/Imm Hx Previously Healthy: Yes Endocrine/Hematology History: Reports: Hx Thyroid Disease - hypo Cardiovascular History: Denies: Other Cardiovascular Problems/Disorders Respiratory History: Denies: Hx Asthma, Other Respiratory Problems/Disorders GI History: Denies: Other GI Disorders History: Reports: Hx Kidney Infection - Hx of, not recent, Other Problems/ Disorders - Hx of UTI, not recent Musculoskeletal History: Denies: Hx Osteoporosis, Other Musculoskeletal History Sensory History: Reports: Hx Contacts or Glasses - readers Denies: Hx Hearing Aid Opthamlomology History: Reports: Hx Contacts or Glasses - readers Neurological History: Denies: Other Neuro Impairments/Disorders - Cancer History Cancer Type, Location and Year: left breast CA (mastectomy 02/25/2019) Hx Chemotherapy: Yes - ONCE Hx Radiation Therapy: Yes - TWICE - Surgical History Surgery Procedure, Year, and Place: bilateral axillary dissection x2. bilat mastectomy 02/25/19 Hx Anesthesia Reactions: No Infectious Disease History: No Infectious Disease History: Denies: Hx Clostridium Difficile, Hx Hepatitis, Hx Human Immunodeficiency Virus (HIV), Hx of Known/Suspected MRSA, Hx Shingles, Hx Tuberculosis, Hx Known/ Suspected VRE, Hx Known/Suspected VRSA, History Other Infectious Disease, Traveled Outside the [place] in Last 30 Days - Family History Known Family History: Positive: Hypertension - Social History Alcohol Use: Daily Alcohol Amount: 1/2 glass of wine Hx Substance Use: No Substance Use Type: Reports: None Hx Tobacco Use: No Smoking Status (MU): Never Smoked Tobacco Have You Smoked in the Last Year: No Review of Systems Negative: Fever Negative: Palpitations, Chest Pain Negative: Cough Positive: Nausea. Negative: Vomiting Positive: Myalgia - pos: back pain. neg: leg pain. Negative: Edema Positive: Numbness All Other Systems Reviewed And Are Negative: Yes Physical Exam - Summary Physical Exam Summary: Constitutional: Well-developed, Well-nourished, Alert. (-) Distressed Skin: Warm, Dry HENT: Normocephalic; Atraumatic Eyes: Conjunctiva normal Neck: Musculoskeletal ROM normal neck. (-) JVD, (-) Stridor, (-) Tracheal deviation Cardio: Rhythm regular, rate normal, Heart sounds normal; Intact distal pulses; The pedal pulses are 2+ and symmetric. Radial pulses are 2+ and symmetric. (-) Murmur Pulmonary/Chest wall: L surgical mastectomy site well-healed. No erythema or wound dehiscence. Effort normal. (-) Respiratory distress, (-) Wheezes, (-) Rales Abd: Soft, (-) tenderness, (-) Distension, (-) Guarding, (-) Rebound Musculoskeletal: (-) Edema Lymph: (-) Cervical adenopathy Neuro: Alert, Oriented x3 Psych: Mood and affect Normal Triage Information Reviewed: Yes Vital Signs On Initial Exam: Initial Vitals Temp Pulse Resp BP Pulse Ox 97.8 F 95 18 149/85 99 05/17/19 13:42 05/17/19 13:42 05/17/19 13:42 05/17/19 13:42 05/17/19 13:42 Vital Signs Reviewed: Yes Procedures - Sedation Patient Received Moderate/Deep Sedation with Procedure: No Diagnostics - Vital Signs Vital Signs Temp Pulse Resp BP Pulse Ox 05/17/19 13:42 97.8 F 95 18 149/85 99 - Laboratory Result Diagrams: 05/17/19 14:34 05/17/19 14:34 Lab Statement: Any lab studies that have been ordered have been reviewed, and results considered in the medical decision making process. - Radiology CXR Radiology Interpretation Completed By: Radiologist Summary of Radiographic Findings: 1. No evidence for acute intrathoracic disease. 2. Elevated lung volumes suggest potential obstructive lung disease. ED physician has reviewed this report. - CT Chest/Thorax CTA CT Interpretation Completed By: Radiologist Summary of CT Findings: No evidence for pulmonary embolism or other acute intrathoracic process. ED physician has reviewed this report. - EKG 1349 Cardiac Rate: NL - 76bpm EKG Rhythm: Sinus Rhythm ST Segment: Normal Ectopy: None Summary of EKG Findings: EKG at 1349 shows NSR at 76bpm with a single PVC noted. No ischemic changes. No STEMI. Dr. Olson has reviewed and interpreted this EKG. Back Pain Course/Dx - Course Course Of Treatment: Pt is a 63 y/o F presenting to the ED with a chief complaint of back pain initially onset about 1 week ago. She notes numbness and nausea along with the pain. She denies vomiting, fever, cough, chest pain, palpitations, abd pain, LE pain or edema, or hx of heart condition. Notes tick bite in early March as well as double mastectomy in March. Pt's physical exam is nml. Noted L surgical mastectomy site that is well-healed, with no erythema or wound dehiscence. EKG at 1349 shows NSR at 76bpm with a single PVC noted. No ischemic changes. No STEMI. Dr. Olson has reviewed and interpreted this EKG. CXR shows: 1. No evidence for acute intrathoracic disease. 2. Elevated lung volumes suggest potential obstructive lung disease. Pt's D-dimer is 410. Will get CTA of chest to r/o PE. Chest/thorax CTA shows: No evidence for pulmonary embolism or other acute intrathoracic process. Pt feeling better as of 1754. She will be d/c'ed with dx of chest pain and PVCs. Instructed to f/ u with PCP on 05/19/19. Agreeable with this plan. - Diagnoses Provider Diagnoses: Chest pain, PVC (premature ventricular contraction) Discharge ED - Sign-Out/Discharge Documenting (check all that apply): Patient Departure - Discharge Plan Condition: Stable Disposition: HOME Patient Education Materials: Chest Pain (ED), Premature Ventricular Contractions (ED) Referrals: Rylie Carson NP [Primary Care Provider] - Additional Instructions: Follow up with your primary care provider on 05/19/19. Return to the emergency department with any new or worsening symptoms - Attestation Statements Document Initiated by Irwinibluis: Yes Documenting Scribe: Kaylee Hylton Provider For Whom Nelson is Documenting (Include Credential): Yaakov Olson DO. Scribluis Attestation: Kaylee Richards, kerried for Yaakov Olson DO. on 05/17/19 at 1755. Status of Scribe Document: Ready
[2019-05-17 14:47] LABS: Hematocrit 38 % (35-47); Mean Corpuscular HGB Conc 34 g/dL (31-36); Mean Corpuscular Hemoglobin 30 pg (27-31); Mean Corpuscular Volume 89 fL (80-97); Mean Platelet Volume 7.1 fL (7.4-10.4); Platelet Count 262 10^3/uL (150-450); Red Blood Count 4.32 10^6 /uL (3.70-4.87); Red Cell Distribution Width 14 % (10-15); White Blood Count 5.3 10^3/uL (3.5-10.8)
[2019-05-17 14:50] LABS: ABS Eosinophils 0.1 10^3/ul (0-0.6); ABS Lymphocytes 1.9 10^3/ul (1.0-4.8); ABS Monocytes 0.5 10^3/ul (0-0.8); ABS Neutrophils 2.9 10^3/ul (1.5-7.7); Eosinophil % 2.5 %; Lymphocyte % 34.5 %; Nucleated Red Blood Cells % 0.1
[2019-05-17 15:04] LABS: Albumin/Globulin Ratio 1.6 (1-3); BUN/Creatinine Ratio 16.4 (8-20); Calcium 8.9 mg/dL (8.6-10.3); EGFR African American 106.9 (>60); EGFR Non-African American 88.3 (>60); Globulin 2.5 g/dL (2-4); Magnesium 1.8 mg/dL (1.9-2.7); Potassium 3.6 mmol/L (3.5-5.0); Total Bilirubin 0.4 mg/dL (0.2-1.0); Total Protein 6.5 g/dL (6.4-8.9)
[2019-05-17 15:05] LABS: Troponin I 0.01 ng/mL (<0.03)
[2019-05-17] MEDS ORDERED: Potassium Chlor TAB* 20 MEQ TAB.ER PO ONE (15:26)
[2019-05-17] MEDS ORDERED: Magnesium Sulfate 1 GM IV* 1 GM/100 ML BAG IV ONE (15:26)
[2019-05-17] MEDS ORDERED: Influenza VAC *QUAD* 2019-20* 0.5 ML SYRINGE IM ONE (15:31)
[2019-05-17 15:43] LABS: TSH (Thyroid Stimulating Horm) 1.58 mcIU/mL (0.34-5.60)
[2019-05-17] MEDS ORDERED: Iodixanol* (CONTRAST) 320 MG/ML 100 ML SDV IV ONE (15:46)
[2019-05-17 18:14] VITALS: BP 116/74
== END 2019-05-17 18:14 | disposition home or self-care (01) ==
LOC: ED 13:34
DX: R07.9 Chest pain, unspecified (principal); I49.3 Ventricular premature depolarization; Z23 Encounter for immunization; E03.9 Hypothyroidism, unspecified; Z85.3 Personal history of malignant neoplasm of breast; Z90.13 Acquired absence of bilateral breasts and nipples
CPT/HCPCS: 36415; 71045; 71275; 80053; 83735; 84443; 84484; 85025; 85379; 90471; 90686; 93005; 96361; 96365; 99284; A9270-GY; J3475; Q9967

== ENCOUNTER 2020-01-13 06:02 | Inpatient (IN) ==
[~2020-01-13 06:02] MED LIST changes: -Acetaminophen TAB* 325 MG PO ONE; +Buffered Lidocaine 1% SYRIN 1 ml INTRADERM ONE; -Buffered Lidocaine 1% SYRIN* 1 ML/SYRINGE INTRADERM ONE; +Famotidine IV 10 MG/ML 2 ml VIAL (20 mg) IV ONE; -Famotidine IV* 10 MG/ML 2 ML (20 mg) IV ONE; -Gabapentin CAP(*) 300 MG PO ONE; -Lactated Ringers 1000 ML Bag* 1,000 ML IV SCH; +Lactated Ringers 1000 ml BAG 1,000 ML IV SCH; +Sodium Citrate/Citric Acid LIQ 15 ML UDC PO ONE
[2020-01-13] MEDS ORDERED: Dexamethasone IV 4 MG/ML VIAL 1 ml VIAL ONE ×2 (06:37→06:39)
[2020-01-13] MEDS ORDERED: Heparin 5000 UNITS/ML 1 mL VIAL ONE (06:37)
[2020-01-13] MEDS ORDERED: Rocuronium 50 mg VIAL 10 mg/ml 5 ml VIAL (50 mg) ONE (06:38)
[2020-01-13] MEDS ORDERED: Famotidine IV 10 MG/ML 2 ml VIAL (20 mg) ONE (06:38)
[2020-01-13] MEDS ORDERED: fentaNYL 250 mcg/5 ml 50 MCG/ML 5 ml VIAL (250 MCG) ONE (06:38)
[2020-01-13] MEDS ORDERED: ceFAZolin 2 GM PREMIX 2 GM/50 ML BAG ONE (06:38)
[2020-01-13] MEDS ORDERED: Buffered Lidocaine 1% SYRIN 1 ml INTRADERM ONE (06:38)
[2020-01-13] MEDS ORDERED: Sodium Citrate/Citric Acid LIQ 15 ML UDC ONE (06:38)
[2020-01-13] MEDS ORDERED: Ondansetron 4 mg VIAL 2 MG/ML 2 ml VIAL ONE ×3 (06:38→11:38)
[2020-01-13] MEDS ORDERED: Midazolam 2 mg/2 ml VIAL 1 mg/ml 2 ml VIAL (2 mg) ONE (06:38)
[2020-01-13] MEDS ORDERED: EPHEDrine (Pressors) 50 MG/ML VIAL ONE (06:39)
[2020-01-13] MEDS ORDERED: Propofol 10 MG/ML 20 ML BTL ONE ×3 (06:39→10:44)
[2020-01-13] MEDS ORDERED: Sterile Water for Inj 10 ML ONE (06:39)
[2020-01-13] MEDS ORDERED: Lidocaine 2% PF 5 ML VIAL ONE ×2 (06:39→08:44)
[2020-01-13] MEDS ORDERED: Phenylephrine 40 mcg/mL 10mL (400mcg) SYRINGE ONE (06:42)
[2020-01-13] MEDS ORDERED: ceFAZolin VIAL VIAL ONE (07:07)
[2020-01-13] MEDS ORDERED: Gentamicin ADULT 40 MG/ML VIAL (2 ML VIAL = 80 MG) ONE (07:07)
[2020-01-13] MEDS ORDERED: Povidone Iodine 5% OPTH 30 ML BTL ONE (07:07)
[2020-01-13] MEDS ORDERED: Bacitracin INJECTION 50,000 UNITS ONE (07:08)
[2020-01-13] MEDS ORDERED: Sugammadex 500 MG/5 ML 5 ml VIAL IV PUSH ONE (08:31)
[2020-01-13] MEDS ORDERED: DiMENhydriNATE IV 50 mg/ml 1 ml VIAL IV PUSH PRN (08:42)
[2020-01-13] MEDS ORDERED: HYDROmorphone 1 MG/1 ML SYRINGE IV PRN (08:42)
[2020-01-13] MEDS ORDERED: Naloxone 0.4 mg VIAL 0.4 mg/ml 1 ml VIAL IV PRN (08:42)
[2020-01-13] MEDS ORDERED: Ondansetron 4 mg VIAL 2 MG/ML 2 ml VIAL IV PRN ×2 (08:42→11:31)
[2020-01-13] MEDS ORDERED: Sodium Bicarbonate 8.4% VIAL 1 MEQ/ML 50 ml VIAL (50 meq) ONE (08:44)
[2020-01-13] MEDS ORDERED: Phenylephrine IV 10 MG/ML 1 ml VIAL ONE (09:10)
[2020-01-13] MEDS ORDERED: Magnesium Hydroxide LIQ 30 ML UDC PO PRN (11:31)
[2020-01-13] MEDS ORDERED: Al Hydrox/Mg Hydrox/Simet LIQ 30 ML UDC PO PRN (11:31)
[2020-01-13] MEDS ORDERED: fentaNYL 100 mcg/2 ml 50 MCG/ML VIAL ONE (11:38)
[2020-01-13] MEDS: fentaNYL 100 mcg/2 ml 50 MCG/ML VIAL IV PRN ×3 (11:41→12:36)
[2020-01-13] MEDS ORDERED: HYDROmorphone 0.5 MG/0.5 ML SYRINGE IV SLOW PU PRN (11:42)
[2020-01-13] MEDS ORDERED: diPHENhydraMINE 25 mg TAB PO PRN (11:43)
[2020-01-13] MEDS ORDERED: diPHENhydraMINE IV 50 MG/ML 1 ml VIAL (BENADRYL) IV PRN (11:43)
[2020-01-13] MEDS: NS 0.9% 1000 ml BAG 1,000 ML IV SCH (14:00)
[2020-01-13] MEDS: Heparin 5000 UNITS/ML 1 mL VIAL SUBCUT SCH ×2 (14:58→22:48)
[2020-01-13] MEDS: HYDROcodone/ACETAMIN 5/325 mg TAB PO PRN ×2 (15:02→22:54)
[2020-01-13] MEDS: ceFAZolin 1 GM ADVAN 1 GM in NS 0.9% 50 ML 50 ML IVPB SCH (16:30)
[2020-01-14] MEDS: ceFAZolin 1 GM ADVAN 1 GM in NS 0.9% 50 ML 50 ML IVPB SCH ×2 (00:17→07:34)
[2020-01-14] MEDS: NS 0.9% 1000 ml BAG 1,000 ML IV SCH (03:42)
[2020-01-14] MEDS: HYDROcodone/ACETAMIN 5/325 mg TAB PO PRN ×2 (06:24→10:45)
[2020-01-14] MEDS: Heparin 5000 UNITS/ML 1 mL VIAL SUBCUT SCH (06:24)
[2020-01-14 07:26] VITALS: BP 110/46
[2020-01-14] MEDS ORDERED: CMCS: Anastrozole 1 mg TAB (NF) PO SCH (18:00)
== END 2020-01-14 11:00 | disposition home or self-care (01) | DRG 585 ==
LOC: AA 06:02 → EDSTATUS 07:30 → SSU 13:26
PROVIDERS: ADMIT Plastic Surgery; ATTEND Plastic Surgery